=== PATIENT | female | born 1980 | race Caucasian/White ===

== ENCOUNTER 2018-03-16 14:57 | Emergency (ER) | payer OTHER ==
[~2018-03-16] VITALS: Ht 175.3 cm; Wt 72.6 kg
[~2018-03-16 14:57] MED LIST: FEOSOL1 TAB PO; ULTRACET PO
[2018-03-16] MEDS ORDERED: KETO10TA2 PO (18:52)
[2018-03-16] MEDS ORDERED: ORPHENADRINE C100 MG PO (18:52)
[2018-03-16] MEDS ORDERED: CYCLOBENZAPRINE10 MG PO (18:52)
== END 2018-03-16 19:34 | disposition home or self-care (01) ==
LOC: ER 14:57
DX: M62.838 Other muscle spasm (principal); M79.622 Pain in left upper arm

== ENCOUNTER 2021-06-16 08:00 | Outpatient (CLI) | payer OTHER ==
[~2021-06-16 08:00] MED LIST changes: +CYCLOBENZAPRINE10 MG PO; +KETO10TA2 PO; +ORPHENADRINE C100 MG PO
== END 2021-06-16 08:30 | disposition home or self-care (01) ==
LOC: PPH VACUNA 08:00
DX: Z23 Encounter for immunization (principal)

== ENCOUNTER 2021-07-10 08:00 | Outpatient (CLI) | payer OTHER | END 2021-07-10 08:15 | disposition home or self-care (01) | LOC: PPH VACUNA 08:00 | PROVIDERS: ATTEND Emergency Medicine Pediatric Emergency Medicine | DX: Z23 Encounter for immunization (principal) ==